=== PATIENT | male | born 1950 | race Caucasian/White ===

== ENCOUNTER 2023-05-24 18:09 | Inpatient (IN) | payer OTHER, MEDICARE ==
[2023-05-24 18:50] VITALS: BMI 25.8
[2023-05-24] MEDS ORDERED: BENZOCAINE/MENTHOL (CHLORASEPTIC ) LOZENGE MM PRN (19:30)
[2023-05-24] MEDS ORDERED: NALOXONE HCL 0.4 MG/ML VIAL IM PRN (19:30)
[2023-05-24] MEDS ORDERED: LOPERAMIDE HCL 2 MG CAPSULE PO PRN (19:30)
[2023-05-24] MEDS ORDERED: diazePAM 5 MG TABLET PO PRN (19:30)
[2023-05-24] MEDS ORDERED: guaiFENesin 600 MG TABLET.ER (FP) PO PRN (19:30)
[2023-05-24] MEDS ORDERED: BENZONATATE 200 MG CAPSULE PO PRN (19:30)
[2023-05-24] MEDS ORDERED: METHOCARBAMOL 500 MG TABLET PO PRN (19:30)
[2023-05-24] MEDS ORDERED: MAGNESIUM HYDROX 2400MG/30ML ORAL SUSPENSION 30 ML CUP PO PRN (19:30)
[2023-05-24] MEDS ORDERED: IBUPROFEN 600 MG TABLET (FP) PO PRN (19:30)
[2023-05-24] MEDS ORDERED: IBUPROFEN 400 MG TABLET (FP) PO PRN (19:30)
[2023-05-24] MEDS ORDERED: DICYCLOMINE HCL 10 MG CAPSULE PO PRN (19:30)
[2023-05-24] MEDS ORDERED: hydrOXYzine PAMOATE 25 MG CAPSULE (FP) PO PRN (19:30)
[2023-05-24] MEDS ORDERED: ACETAMINOPHEN 325 MG TABLET (FP) PO PRN (19:30)
[2023-05-24] MEDS ORDERED: ONDANSETRON *ODT* 4 MG TABLET SL PRN (19:30)
[2023-05-24] MEDS ORDERED: BISMUTH SUBSALICYLATE 524 MG/30 ML PO PRN (19:30)
[2023-05-24] MEDS ORDERED: MAG HYDROX/AL HYDROX/SIMETH 30 ML UNIT-DOSE CUP PO PRN (19:30)
[2023-05-24] MEDS ORDERED: NALOXONE HCL (KLOXXADO) 8 MG SPRAY NS PRN (19:30)
[2023-05-24] MEDS ORDERED: POLYETHYLENE GLYCOL (HEALTHYLAX) 3350 17 GM PACKET PO PRN (19:30)
[2023-05-24] MEDS ORDERED: cloNIDine HCL 0.1 MG TABLET ONE (19:42)
[2023-05-24] MEDS: cloNIDine HCL 0.1 MG TABLET PO PRN (19:46)
[2023-05-24] MEDS: MELATONIN 5 MG TABLETS PO SCH (22:28)
[2023-05-24] MEDS: THIAMINE HCL 100 MG TABLET (FP) PO SCH (22:28)
[2023-05-24] MEDS: diazePAM 5 MG TABLET PO SCH (22:29)
[2023-05-25] MEDS: diazePAM 5 MG TABLET PO SCH ×4 (05:55→22:27)
[2023-05-25] MEDS: PRENATAL VITAMINS W/ FOLIC ACID TABLET (FP) PO SCH (10:09)
[2023-05-25 10:42] LABS: HEMATOCRIT 41.7 % (35.4-49); HEMOGLOBIN 13.6 GM/dL (11.7-16.9); MCH 29.4 pg (25.7-33.7); MCHC 32.6 g/dl (32.0-35.9); MEAN CELL VOLUME 90.4 fl (80-96); MEAN PLT VOLUME 8.4 fl (7.5-11.1); PLATELET COUNT 294 10^3/uL (134-434); RBC 4.62 M/mm3 (4.00-5.60)
[2023-05-25 10:45] LABS: POTASSIUM 4.2 mmol/L (3.5-5.1)
[2023-05-25 10:49] LABS: ALBUMIN 3.9 g/dl (3.4-5.0); CALCIUM 8.6 mg/dL (8.5-10.1)
[2023-05-25 10:53] LABS: CREATININE 1.1 mg/dL (0.55-1.3)
[2023-05-25 10:54] LABS: BILIRUBIN,TOTAL 1.2 mg/dL (0.2-1); TOT PROT 6.6 g/dl (6.4-8.2)
[2023-05-25] MEDS: cloNIDine HCL 0.1 MG TABLET PO PRN (14:07)
[2023-05-25] MEDS: LOSARTAN POTASSIUM 50 MG TABLET PO SCH (15:36)
[2023-05-25] MEDS ORDERED: ATORVASTATIN CA 20 MG TABLET (FP) PO SCH (22:00)
[2023-05-25] MEDS: MELATONIN 5 MG TABLETS PO SCH (22:27)
[2023-05-25] MEDS: THIAMINE HCL 100 MG TABLET (FP) PO SCH (22:27)
[2023-05-26] MEDS ORDERED: diazePAM 5 MG TABLET PO SCH (06:00)
[2023-05-26] MEDS: LOSARTAN POTASSIUM 50 MG TABLET PO SCH (09:06)
[2023-05-26] MEDS: PRENATAL VITAMINS W/ FOLIC ACID TABLET (FP) PO SCH (09:07)
[2023-05-26 09:10] VITALS: BP 159/89; PULSE 78; RESP 18; TEMP 98.6
[2023-05-26] MEDS ORDERED: FERROUS SO4 325 MG TABLET (FP) PO SCH (10:00)
[2023-05-26] MEDS ORDERED: MAGNESIUM OXIDE 400 MG TABLET (FP) PO SCH (10:00)
[2023-05-26] MEDS ORDERED: CHOLECALCIFEROL (VIT D3) 1,000 UNIT (25 MCG) TABLET PO SCH (10:00)
[2023-05-27] MEDS ORDERED: diazePAM 5 MG TABLET PO SCH (06:00)
[2023-05-28] MEDS ORDERED: diazePAM 5 MG TABLET PO ONE (06:00)
== END 2023-05-26 09:08 | disposition left against medical advice (07) | DRG 894 ==
LOC: YASAS 18:09 → Y3N 20:31
PROVIDERS: ADMIT Allergy & Immunology; ATTEND Surgery
PROC: HZ2ZZZZ Detoxification Services for Substance Abuse Treatment (ICD-10-PCS; principal; 2023-05-24)
DX: F10.230 Alcohol dependence with withdrawal, uncomplicated (principal); F41.9 Anxiety disorder, unspecified; E78.5 Hyperlipidemia, unspecified; I10 Essential (primary) hypertension; Z87.891 Personal history of nicotine dependence
CPT/HCPCS: 36415; 80053; 80307; 85027; 86780; 87635; 93005; 93010